=== PATIENT | male | born 1995 | race Caucasian/White ===

== ENCOUNTER → 2016-11-14 | Outpatient (CLI) | payer MEDICAID | END | disposition home or self-care (01) | LOC: CVU 15:42 | PROVIDERS: ATTEND Family Medicine | DX: R00.0 Tachycardia, unspecified (principal); Q67.6 Pectus excavatum; R46.89 Other symptoms and signs involving appearance and behavior; G89.29 Other chronic pain; R07.9 Chest pain, unspecified | CPT/HCPCS: 93306 ==